=== PATIENT | male | born 1985 | race Caucasian/White ===

== ENCOUNTER 2018-12-22 19:11 | Emergency (ER) | payer MEDICAID ==
--- NOTE | 2018-12-22 20:11 | EDM.PDOC ---
ED HPI GENERAL MEDICAL PROBLEM - General Chief Complaint: Flank Pain Stated Complaint: LOW BACK/FLANK PAIN Time Seen by Provider: 12/22/18 19:55 Source of Information: Reports: Patient History Limitations: Reports: No Limitations - History of Present Illness INITIAL COMMENTS - FREE TEXT/NARRATIVE: 32-year-old male with left posterior flank pain intermittent for the past week. He's having trouble with certain range of motion, sitting, standing and is keeping him awake at night. Intermittent radiation around to the abdomen, no dysuria or urinary frequency. No history of renal stones. No fevers or chills, nausea or vomiting. Onset: Sudden Duration: Day(s): (Started fairly suddenly 7 days ago) Location: Reports: Back (Left flank) Worsens with: Reports: Movement (Seems to be worse with movements and certain positions) Associated Symptoms: Reports: No Other Symptoms Left Flank Pain Score (Numeric/FACES): 9 - Related Data Allergies Allergy/AdvReac Type Severity Reaction Status Date / Time Penicillins Allergy Nausea Verified 12/22/18 19:50 Home Meds: Home Meds Allopurinol [Zyloprim] 200 mg PO DAILY 12/22/18 [History] Past Medical History - Past Health History Medical/Surgical History: Denies Medical/Surgical History Genitourinary History: Reports: Renal Calculus - Past Surgical History Head Surgeries/Procedures: Reports: None Male Surgical History: Reports: None Dermatological Surgical History: Reports: None Social & Family History - Family History Family Medical History: Noncontributory - Tobacco Use Smoking Status *Q: Current Every Day Smoker Years of Tobacco use: 20 Packs/Tins Daily: 1 Second Hand Smoke Exposure: Yes - Caffeine Use Caffeine Use: Reports: Coffee, Soda - Recreational Drug Use Recreational Drug Use: No ED ROS GENERAL - Review of Systems Review Of Systems: See Below Constitutional: Denies: Fever, Chills Respiratory: Denies: Shortness of Breath Cardiovascular: Denies: Chest Pain GI/Abdominal: Denies: Abdominal Pain, Nausea, Vomiting : Reports: Flank Pain Musculoskeletal: Reports: Back Pain Skin: Reports: No Symptoms (Left-sided) ED EXAM,LOWER BACK PAIN/INJURY - Physical Exam Exam: See Below Exam Limited By: No Limitations General Appearance: Alert, No Apparent Distress (Looks uncomfortable but not distressed) Head: Atraumatic Respiratory/Chest: No Respiratory Distress, Lungs Clear Cardiovascular: Regular Rate, Rhythm Back Exam: CVA Tenderness (L) (He does have some mild CVA tenderness on the left side, and paraspinal tenderness to palpation). No: CVA Tenderness (R) Neurological: Alert, No Motor/Sensory Deficits, Oriented x 3 Course - Vital Signs Last Recorded V/S: Last Vital Signs Temp 96.9 F 12/22/18 19:47 Pulse 81 12/22/18 19:47 Resp 16 12/22/18 19:47 BP 139/94 H 12/22/18 19:47 Pulse Ox 97 12/22/18 19:47 - Orders/Labs/Meds Orders: Active Orders 24 hr Category Date Time Status CULTURE URINE [RM] Stat Lab 12/22/18 20:50 Received Labs: Laboratory Tests 12/22/18 Range/Units 20:05 Urine Color Yellow (YELLOW) Urine Appearance Clear (CLEAR) Urine pH 5.5 (5.0-8.0) Ur Specific [place] 1.005 L (1.008-1.030) Urine Protein Negative (NEGATIVE) mg/dL Urine Glucose (UA) Negative (NEGATIVE) mg/dL Urine Ketones Negative (NEGATIVE) mg/dL Urine Occult Blood Trace-lysed H (NEGATIVE) Urine Nitrite Negative (NEGATIVE) Urine Bilirubin Negative (NEGATIVE) Urine Urobilinogen 0.2 (0.2-1.0) EU/dL Ur Leukocyte Esterase Small (NEGATIVE) Urine RBC 0-5 (0-5) Urine WBC 10-20 H (0-5) Ur Epithelial Cells Few Amorphous Sediment Not seen Urine Bacteria Few Urine Mucus Not seen - Re-Assessments/Exams Free Text/Narrative Re-Assessment/Exam: 12/22/18 20:10 A UA was obtained and a CT of the abdomen and pelvis without contrast will be ordered. 12/22/18 20:48 UA returned with some WBCs and bacteria. CT also confirmed some bladder thickening and slight stranding which could indicate inflammation. 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 A urine culture was obtained, and the findings discussed with the patient. He'll be started on Macrobid twice daily pending the culture, and given some Flexeril and a 10 hydrocodone for pain control. He may want to cut back on the ibuprofen since he has a single kidney. Recheck with a primary provider in the next 1-2 weeks for a regular physical and consider a nephrology consult. Departure - Departure Time of Disposition: 21:01 Disposition: Home, Self-Care 01 Clinical Impression: UTI, Urinary tract infectious disease, Left flank pain - Discharge Information Instructions: Flank Pain, Adult, [id number] Referrals: PCP,None [Primary Care Provider] - Forms: ED Department Discharge Care Plan Goals: Use muscle relaxers and stronger pain medications as directed if needed. Take antibiotic twice daily and we will contact you with culture results if changes need to be made. Drink lots of water and try to cut back on ibuprofen intake. Consider getting a primary provider for a regular physical and discuss being followed by nephrology due to your single kidney. Return sooner if worsening such as fever or increased pain. - My Orders Last 24 Hours: My Active Orders 12/22/18 20:50 CULTURE URINE [RM] Stat - Assessment/Plan Last 24 Hours: My Active Orders 12/22/18 20:50 CULTURE URINE [RM] Stat
--- NOTE | 2018-12-22 20:39 | CRLCT ---
INDICATION: Left-sided flank pain. TECHNIQUE: CT of the abdomen and pelvis performed without oral or IV contrast. FINDINGS: Single kidney within the midline and left pelvis is somewhat bulbous. Mild to moderate dilatation of the internal collecting system and ureter of this pelvic kidney. No renal or ureteral calculi. The urinary bladder is somewhat lobulated in its wall is mildly thickened and irregular. Minimal stranding about the pelvic kidney and urinary bladder which could be related to slight inflammation or edema but is of indeterminate age. Remainder negative. IMPRESSION: 1. No acute disease in abdomen or pelvis. 2. Single pelvic kidney with mild dilatation of the ureter internal collecting system of this kidney. No renal ureteral calculi. 3. Mildly thickened irregular bladder wall. 4. Slight stranding about the urinary bladder and the pelvic kidney which could be related to slight inflammation or edema of an indeterminate etiology. 5. Small nodule left adrenal gland may be an adrenal adenoma. Please note that all CT scans at this facility use dose modulation, iterative reconstruction, and/or weight-based dosing when appropriate to reduce radiation dose to as low as reasonably achievable. Dictated by Chadd Hamilton MD @ Dec 22 2018 8:38PM Signed by Dr. Chadd Hamilton @ Dec 22 2018 8:38PM
== END 2018-12-22 21:02 | disposition home or self-care (01) ==
LOC: JP.ED 19:11
DX: N39.0 Urinary tract infection, site not specified (principal); F17.210 Nicotine dependence, cigarettes, uncomplicated; Z88.0 Allergy status to penicillin; Z79.899 Other long term (current) drug therapy
CPT/HCPCS: 74176; 81001; 87086; 99284-25

== ENCOUNTER 2021-01-23 12:37 | Emergency (ER) | payer MEDICAID ==
--- NOTE | 2021-01-23 14:07 | CRLCR ---
For Patients: As a result of the Century Cures Act, medical imaging exams and procedure reports are released immediately into your electronic medical record. You may view this report before your referring provider. If you have questions, please contact your health care provider. Indication: Dyspnea Comparison: None available. Technique: Single AP view chest Findings: There is hyperinflation and chronic interstitial change. There are ground-glass and airspace opacities of the bilateral hemithoraces likely representing developing multifocal infiltrates. The cardiac silhouette is markedly enlarged, a pericardial effusion cannot be excluded. There is questionable surgical device projecting over the median chest. The bony thorax is grossly intact. Impression: Demonstration of marked cardiomegaly with moderate ground-glass and airspace opacities seen throughout the bilateral hemithoraces likely representing developing pulmonary edema and/or multifocal infiltrates. Correlate with history of bird virus infection if there remains persistent clinical concern. Dictated by Jose Tavares MD @ 01/23/2021 2:06:32 PM (Electronically Signed)
[2021-01-23] MEDS ORDERED: Furosemide 40 MG Tab PO ONE (15:30)
[2021-01-23] MEDS ORDERED: Carvedilol 3.125 MG Tab PO ONE (15:31)
--- NOTE | 2021-01-23 15:39 | EDM.PDOC ---
ED HPI GENERAL MEDICAL PROBLEM - General Chief Complaint: Respiratory Problem Stated Complaint: SOB AND CHEST PAIN Time Seen by Provider: 01/23/21 14:50 Source of Information: Reports: Patient History Limitations: Reports: No Limitations - History of Present Illness INITIAL COMMENTS - FREE TEXT/NARRATIVE: This is a 35-year-old male without known significant medical history who p resents with concerns of cough and dyspnea. He reports that he first noticed a cough several weeks ago. Over the past week or so he has noted increasing dyspnea. This now occurs with minimal exertion. He reports that he is waking up from sleep at night short of breath. Cough has been nonproductive. He also notes some lower extremity edema. He has no fevers or chills. No history of cardiac disease. No chest pain. 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 Chest Pain Score (Numeric/FACES): 10 - Related Data Allergies Allergy/AdvReac Type Severity Reaction Status Date / Time Penicillins Allergy Nausea Verified 01/23/21 13:48 Home Meds: Home Meds allopurinoL [Zyloprim] 200 mg PO DAILY 12/22/18 [History] Albuterol [Ventolin HFA] 2 puff IH QID 01/23/21 [History] Doxycycline [Doxycycline Hyclate] 100 mg PO BID 01/23/21 [History] Furosemide [Lasix] 40 mg PO DAILY #30 tab 01/23/21 [Rx] Ibuprofen [Motrin] 800 mg PO BIDM PRN 01/23/21 [History] carvediloL [Coreg] 3.125 mg PO DAILY #30 tablet 01/23/21 [Rx] predniSONE [Prednisone] 20 mg PO DAILY 01/23/21 [History] Past Medical History - Past Health History Medical/Surgical History: Denies Medical/Surgical History HEENT History: Reports: None Cardiovascular History: Reports: Hypertension Other Cardiovascular History: chest pain Respiratory History: Reports: None Gastrointestinal History: Reports: None Genitourinary History: Reports: Renal Calculus Musculoskeletal History: Reports: None Neurological History: Reports: Concussion Psychiatric History: Reports: Anxiety Endocrine/Metabolic History: Reports: None Hematologic History: Reports: None Immunologic History: Reports: None Oncologic (Cancer) History: Reports: None Dermatologic History: Reports: None - Infectious Disease History Infectious Disease History: Reports: Chicken Pox, Novel Coronavirus - Past Surgical History Head Surgeries/Procedures: Reports: None HEENT Surgical History: Reports: None Cardiovascular Surgical History: Reports: None GI Surgical History: Reports: None Male Surgical History: Reports: None Dermatological Surgical History: Reports: None Social & Family History - Family History Family Medical History: No Pertinent Family History - Tobacco Use Tobacco Use Comment: current smoker for 20 years - Caffeine Use Caffeine Use: Reports: Coffee, Soda - Recreational Drug Use Recreational Drug Type: Reports: Marijuana/Hashish, Methamphetamine ED ROS GENERAL - Review of Systems Review Of Systems: See Below Constitutional: Reports: No Symptoms HEENT: Reports: No Symptoms Respiratory: Reports: Shortness of Breath Cardiovascular: Reports: Edema, Orthopnea Endocrine: Reports: No Symptoms GI/Abdominal: Reports: No Symptoms : Reports: No Symptoms Musculoskeletal: Reports: No Symptoms Skin: Reports: No Symptoms Neurological: Reports: No Symptoms Psychiatric: Reports: No Symptoms Hematologic/Lymphatic: Reports: No Symptoms Immunologic: Reports: No Symptoms ED EXAM, GENERAL - Physical Exam Exam: See Below Exam Limited By: No Limitations General Appearance: Alert, No Apparent Distress Nose: Normal Inspection Throat/Mouth: Normal Inspection Head: Atraumatic, Normocephalic Neck: Normal Inspection Respiratory/Chest: Rhonchi (Throughout the lung mccloud. No tachypnea or respiratory distress.) Cardiovascular: No Murmur, Tachycardia, Other (Moderate bilateral lower extremity edema to the level of the ankle) GI/Abdominal: Soft, Non-Tender (Male) Exam: No Hernia Back Exam: Normal Inspection Extremities: Pedal Edema Neurological: Alert, Oriented Psychiatric: Normal Affect, Normal Mood Skin Exam: Warm, Dry #1 Interpretation Rhythm: Other (Sinus tachycardia. Rate is 110. Lateral T wave flattening, nonspecific change, no other ischemic changes. No prior for comparison.) Course - Vital Signs Last Recorded V/S: Last Vital Signs Temp 35.9 C L 01/23/21 13:40 Pulse 114 H 01/23/21 16:07 Resp 22 H 01/23/21 16:07 BP 118/85 01/23/21 16:07 Pulse Ox 97 01/23/21 16:07 - Orders/Labs/Meds Orders: Active Orders 24 hr Category Date Time Status EKG 12 Lead [EK] Routine Ther 01/23/21 15:56 Ordered Labs: Laboratory Tests 01/23/21 01/23/21 01/23/21 Range/Units 13:36 14:26 14:26 WBC 15.8 H (4.5-11.0) K/uL RBC 5.26 (4.30-5.90) M/uL Hgb 16.4 H (12.0-15.0) g/dL Hct 47.8 (40.0-54.0) % MCV 91 (80-98) fL MCH 31 (27-31) pg MCHC 34 (32-36) % Plt Count 242 (150-400) K/uL Neut % (Auto) 84.3 H (36-66) % Lymph % (Auto) 8.4 L (24-44) % [place] % (Auto) 7.1 H (2-6) % Eos % (Auto) 0.1 L (2-4) % Baso % (Auto) 0.1 (0-1) % Sodium 132 L (140-148) mmol/L Potassium 5.5 H (3.6-5.2) mmol/L Chloride 99 L (100-108) mmol/L Carbon Dioxide 21 (21-32) mmol/L Anion Gap 17.5 H (5.0-14.0) mmol/L BUN 45 H (7-18) mg/dL Creatinine 2.1 H (0.8-1.3) mg/dL Est Cr Clr Drug Dosing 50.21 mL/min Estimated GFR (MDRD) 36 L (>60) Glucose 107 H (74-106) mg/dL Calcium 9.0 (8.5-10.1) mg/dL Total Bilirubin 1.3 H (0.2-1.0) mg/dL AST 282 H (15-37) U/L ALT 424 H (12-78) U/L Alkaline Phosphatase 100 (46-116) U/L Troponin I 0.036 (0.000-0.056) ng/mL NT-Pro-B Natriuret Pep 9013 H (5-125) pg/mL Total Protein 5.9 L (6.4-8.2) g/dL Albumin 3.2 L (3.4-5.0) g/dL Globulin 2.7 (2.3-3.5) g/dL Albumin/Globulin Ratio 1.2 (1.2-2.2) SARS CoV-2 RNA Rapid MANN Negative Meds: Medications Discontinued Medications Generic Name Dose Route Start Last Admin Trade Name Tawny PRN Reason Stop Dose Admin Carvedilol 3.125 mg 01/23/21 15:31 01/23/21 16:03 Carvedilol 3.125 Mg Tab PO 01/23/21 15:32 3.125 mg ONETIME ONE Administration Furosemide 40 mg 01/23/21 15:30 01/23/21 16:03 Furosemide 40 Mg Tab PO 01/23/21 15:31 40 mg ONETIME ONE Administration - Re-Assessments/Exams Free Text/Narrative Re-Assessment/Exam: This is a 35-year-old male who presents with concerns of cough and dyspnea. On exam he is noted to be tachycardic. Blood pressure is preserved. Appropriate saturation on room air. Cardiopulmonary exam remarkable for crackles throughout the lung mccloud, but appears comfortable with his breathing. He is also noted to have lower extremity edema. Initially evaluated with chest x-ray which shows diffuse infiltrates and cardiomegaly. Covid negative. After obtaining more history/exam became apparent patient is having symptoms consistent with newly diagnosed CHF. [id number] echocardiogram was performed. This shows significantly reduced left ventricular ejection fraction. No right ventricular enlargement. No pericardial effusion. Diffuse pulmonary B-lines indicative of pulmonary edema w ithout pleural effusion. Labs obtained, multiple marked abnormalities. His creatinine is 2. K mildly elevated at 5.5. LFTs are elevated. BNP is 9000. Troponin is within normal limits. Kidney injury and hepatopathy are consistent with acute CHF which we have seen clinically with him. We ambulated him around the ED. His saturations remained in the high 90s and he had no significant increased work of breathing. We have no hospital beds available in our region and the patient is motivated to continue his treatment work-up as an outpatient, we are therefore cautiously going to proceed with this strategy. We are starting him on daily Lasix, 40 mg, as well as a low-dose of carvedilol given his apparent systolic CHF. He is going to hold his outpatient prescription for ibuprofen. I have ordered him to have repeat labs and visit with his primary doctor in 2 days so he can be reassessed. If he is not having good output on the Lasix may want to consider an increased dose. Additionally, I have ordered him an outpatient echocardiogram and prompt follow-up with the visiting [facility] house calls nurse practitioner. Etiology of his heart failure is not clear. He denies viral prodrome. No isc hemic symptoms with negative troponin. Does have a distant hx of methamphetamine abuse so suspect for this. Had a conversation with the patient that his heart failure is nearly necessitating hospital admission. He knows to be in the look out for worsening symptoms and will return to the emergency room for reevaluation of these occur. He is seen today in the presence of his significant other and they both agree that they feel safe with outpatient management and will return if needed. 01/23/21 15:59 Departure - Departure Time of Disposition: 15:35 Disposition: Home, Self-Care 01 Clinical Impression: Acute congestive heart failure Qualifiers: Heart failure type: systolic Qualified Code(s): I50.21 - Acute systolic (congestive) heart failure - Discharge Information *PRESCRIPTION DRUG MONITORING PROGRAM REVIEWED*: No *COPY OF PRESCRIPTION DRUG MONITORING REPORT IN PATIENT FREDY: No Prescriptions: carvediloL [Coreg] 3.125 mg PO DAILY #30 tablet Furosemide [Lasix] 40 mg PO DAILY #30 tab Instructions: Shortness of Breath, Adult, [id number], Heart Failure, Self Care, [id number], Supporting Someone With Heart Failure, Heart Failure, Diagnosis, [id number], Preventing Heart Failure, Heart Failure Exacerbation Referrals: Gregorio Mcknight [employer] [Primary Care Provider] - Forms: ED Department Discharge Additional Instructions: As discussed, we believe that you are having trouble with your heart, called CHF, that is causing your symptoms. You are very near needing hospitalization. For this reason, if you feel that your symptoms worsen at all please come back to the emergency room so we can reevaluate you. We have several medication changes after today's visit: 1) Start taking the prescribed furosemide, this is a pill that will help eliminate the water from your lungs. 2) We are starting you on additional medication called Coreg (carvedilol) which helps control your blood pressure and helps your heart function. 3) STOP TAKING ANY IBUPROFEN, IT IS CAUSING TROUBLE WITH YOUR KIDNEYS We have placed orders for you to have repeat labs and a follow-up visit with Gregorio Mcknight this week. We have also placed a referral for you to be seen by a house calls nurse practitioner when they come to [place]. Thank you for trusting us to care for you today. Sepsis Event Note (ED) - Focused Exam Vital Signs: Vital Signs Temp Pulse Pulse Resp BP BP Pulse Ox 01/23/21 16:07 114 H 22 H 118/85 97 01/23/21 16:03 114 H 118/85 01/23/21 13:40 35.9 C L 113 H 20 128/95 H 97 01/23/21 12:40 35.9 C L 113 H 20 128/95 H 97 - My Orders Last 24 Hours: My Active Orders 01/23/21 15:56 EKG 12 Lead [EK] Routine - Assessment/Plan Last 24 Hours: My Active Orders 01/23/21 15:56 EKG 12 Lead [EK] Routine
== END 2021-01-23 16:22 | disposition home or self-care (01) ==
LOC: JP.ED 12:37
DX: I11.0 Hypertensive heart disease with heart failure (principal); I50.21 Acute systolic (congestive) heart failure; F17.200 Nicotine dependence, unspecified, uncomplicated; R00.0 Tachycardia, unspecified; Z88.0 Allergy status to penicillin; Z79.899 Other long term (current) drug therapy; Z20.822 Contact with and (suspected) exposure to COVID-19
CPT/HCPCS: 36415; 71045; 80053; 83880; 84484; 85025; 87635; 93005; 99285; A9270; U0002